=== PATIENT | male | born 1960 | race Caucasian/White ===

== ENCOUNTER 2023-09-30 20:58 | Inpatient (IN) | payer BC, SELFPAY ==
[2023-09-30] VITALS (7 sets, daily range): BP systolic 107–135; BP diastolic 57–102; BMI 34.5; BMI 34.1
[2023-09-30 13:01] LABS: Urine Albumin 2+ (Neg - Trace); Urine Bilirubin Negative (Negative); Urine Character Slightly Cloudy (Clear); Urine Color Yellow; Urine Glucose Negative (Negative); Urine Ketone Negative (Negative); Urine Leukocyte 1+ (Negative); Urine Nitrite Negative (Negative); Urine Occult Blood 4+ (Negative); Urine Urobilinogen Negative (Neg - 1+)
[2023-09-30 13:21] LABS: ALT (SGPT) 77 U/L (0-50); AST (SGOT) 71 U/L (17-59); Albumin 3.5 g/dl (3.5-5.0); Alkaline Phosphatase 73 U/L (38-126); Blood Urea Nitrogen 19 mg/dl (9-20); Calcium 8.7 mg/dl (8.4-10.2); Carbon Dioxide 19 mmol/L (22-30); Chloride 109 mmol/L (98-107); Glucose 112 mg/dl (70-99); Lipase 437 U/L (23-300); Potassium 3.5 mmol/L (3.5-5.1); Sodium 133 mmol/L (135-145); Total Bilirubin 1.1 mg/dl (0.2-1.3); Total Protein 5.4 g/dl (6.3-8.2); eGFR 39.39
[2023-09-30 13:24] LABS: % Basophils 0.5 % (0-2); % Immature Granulocytes 6.6 % (0-0.5); % Lymphocytes 3.4 % (20.5-51.1); % Monocytes 5.8 % (1.7-9.3); % Neutrophils 83.7 % (42.2-75.2); Absolute Basophils 0.1 10^3/uL (0-0.2); Absolute Immature Granulocytes 1.7 10^3/uL (0-0.05); Absolute Lymphocytes 0.9 10^3/uL (1.2-3.4); Absolute Monocytes 1.5 10^3/uL (0.1-0.6); Absolute Neutrophils 22.1 10^3/uL (1.4-6.5); Hematocrit 41.2 % (39.0-52.0); Hemoglobin 14.8 g/dL (13.0-18.0); Mean Corp Hgb Conc. 35.9 g/dL (33.0-37.0); Mean Corpuscular Hgb 31.4 pg (27.0-31.0); Mean Corpuscular Volume 87.5 fL (80.0-94.0); Mean Platelet Volume 10.5 fL (7.4-10.4); Nucleated Red Blood Cells % 0 % (-); Platelet Count 184 10^3/uL (130-400); Red Blood Cell Count 4.71 10^6/uL (4.70-6.10); Red Cell Dist. Width 13.9 % (11.5-14.5); White Blood Cell Count 26.4 10^3/uL (4.8-10.8)
[2023-09-30 13:51] LABS: Urine Amorphous Seen; Urine Mucus Moderate; Urine Squamous Cell 16-20 /LPF (Few)
[2023-09-30 13:53] LABS: Urine White Cell 30-40 /HPF (0-5)
[2023-09-30 13:54] LABS: Urine Bacteria Few (Negative)
--- NOTE | 2023-09-30 16:20 | ED.GENMED ---
History of Present Illness
<Fox Berry PA-C - Last Filed: 09/30/23 19:34>
General
Chief Complaint: Abdominal Pain
Source: patient
Exam Limitations: none
Time Seen by Provider: 09/30/23 16:06
Travel History
Have you had any contact with someone who has COVID-19?: No
Do you have any symptoms of coronavirus? Fever > 100 degrees, chills, cough, shortness of breath, sore throat, loss of taste or smell, muscle aches, or headache?: No
History of Present Illness
History of Present Illness:
63-year-old male with history of hypertension presents with several days worth of lower abdominal pain chills and fever. Saw treatment family doctor yesterday and thought to have either diverticulitis or urinary tract. He was started on Augmentin.
He has had 2 doses of this. He notes persistent rigors and lower abdominal pain. The pain is is moderate made worse with coughing. Does not radiate to the back. He notes a headache with coughing. Denies any vomiting. He has an urgency to
urinate and incontinence at times. No other complaints at this time
Past History
<Fox Berry PA-C - Last Filed: 09/30/23 19:34>
Past History
ED Past Medical History: HTN
Social History
Personal:
Phy Exam
<Fox Berry PA-C - Last Filed: 09/30/23 19:34>
Physical Exam
Physical Exam:
General: Ill-appearing male no acute respiratory distress with rigors HEENT: Normocephalic atraumatic mucosa dry neck is supple
Heart: tachycardic but regular
Lungs: Clear no wheeze or Rales
Abdomen soft tender to the lower abdomen bilaterally and slightly to the right mid abdomen. Negative Sherwood sign normal bowel sounds nondistended
Extremities: No cyanosis
Skin: Warm no rash
Course
<Fox Berry PA-C - Last Filed: 09/30/23 19:34>
Orders/Labs/Results
Orders:
Orders
09/30/23 12:47
Complete Blood Count/With Diff Urgent
Comprehensive Metabolic Panel Urgent
Lipase Urgent
Urinalysis Reflex To Culture Urgent
Date Specimen was Collected: 09/30/23
Time Specimen was Collected: 12:44
Urine Microscopic Reflex Cult Urgent
Urine Culture Urgent
PAULA Source: U
Specimen Description:
Date Specimen was Collected: 09/30/23
Time Specimen was Collected: 12:44
09/30/23 16:19
CT Abd/pelvis W Iv Cont Urgent
Comment:
Reason For Exam: lower abdominal pain, fever
0.9% Sodium Chloride 1000 ml [Nss] 1,000 ml IV BOLUS
Acetaminophen [Tylenol] 1,000 mg PO NOW STA
09/30/23 16:57
Lactic Acid Q4H
Comment: CANCEL 2nd LACTIC ACID IF 1st LACTIC ACID IS LESS THAN 2
Blood Culture Q30M
PAULA Source: Blood/Venous
Specimen Description:
09/30/23 18:22
Blood Culture Q30M
PAULA Source: Blood/Venous
Specimen Description:
09/30/23 19:22
Cefepime HCl [Maxipime] 2,000 mg IV NOW STA
09/30/23 19:23
0.9% Sodium Chloride 1000 ml [Nss] 1,000 ml IV BOLUS
Abnormal Lab Results
09/30/23
12:47
WBC 26.4 H 10^3/uL
(4.8-10.8)
MCH 31.4 H pg
(27.0-31.0)
MPV 10.5 H fL
(7.4-10.4)
Abs Immat Gran (auto) 1.7 H 10^3/uL
(0-0.05)
Absolute Neuts (auto) 22.1 H 10^3/uL
(1.4-6.5)
Absolute Lymphs (auto) 0.9 L 10^3/uL
(1.2-3.4)
Absolute Monos (auto) 1.5 H 10^3/uL
(0.1-0.6)
Immature Gran % 6.6 H %
(0-0.5)
Neutrophils % 83.7 H %
(42.2-75.2)
Lymphocytes % 3.4 L %
(20.5-51.1)
Sodium 133 L mmol/L
(135-145)
Chloride 109 H mmol/L
(98-107)
Carbon Dioxide 19 L mmol/L
(22-30)
Creatinine 1.9 H mg/dL
(0.7-1.3)
Glucose 112 H mg/dl
(70-99)
AST 71 H U/L
(17-59)
ALT 77 H U/L
(0-50)
Total Protein 5.4 L g/dl
(6.3-8.2)
Lipase 437 H U/L
(23-300)
Ur Occult Blood Reflex 4+ A
(Negative)
Leukocyte Esterase Rfl 1+ A
(Negative)
Urine RBC 11-15 A /HPF
(0-2)
Urine WBC (Reflex) 30-40 A /HPF
(0-5)
Urine Bacteria (Reflex) Few A
(Negative)
Urine Albumin (Reflex) 2+ A
(Neg - Trace)
09/30/23 12:47
09/30/23 12:47
Vital Signs
Initial and Last Documented VS:
Initial Vital Signs
Temp Pulse Resp BP Pulse Ox
100.8 F H 109 18 112/72 95
09/30/23 12:42 09/30/23 12:42 09/30/23 12:42 09/30/23 12:42 09/30/23 12:42
Last Documented Vital Signs
Temp Pulse Resp BP Pulse Ox
100.5 F H 93 20 118/57 94
09/30/23 17:38 09/30/23 19:45 09/30/23 19:45 09/30/23 19:40 09/30/23 18:00
<Sammy Sanon, DO - Last Filed: 09/30/23 19:51>
Orders/Labs/Results
Orders:
Orders
09/30/23 12:47
Complete Blood Count/With Diff Urgent
Comprehensive Metabolic Panel Urgent
Lipase Urgent
Urinalysis Reflex To Culture Urgent
Date Specimen was Collected: 09/30/23
Time Specimen was Collected: 12:44
Urine Microscopic Reflex Cult Urgent
Urine Culture Urgent
PAULA Source: U
Specimen Description:
Date Specimen was Collected: 09/30/23
Time Specimen was Collected: 12:44
09/30/23 16:19
CT Abd/pelvis W Iv Cont Urgent
Comment:
Reason For Exam: lower abdominal pain, fever
0.9% Sodium Chloride 1000 ml [Nss] 1,000 ml IV BOLUS
Acetaminophen [Tylenol] 1,000 mg PO NOW STA
09/30/23 16:57
Lactic Acid Q4H
Comment: CANCEL 2nd LACTIC ACID IF 1st LACTIC ACID IS LESS THAN 2
Blood Culture Q30M
PAULA Source: Blood/Venous
Specimen Description:
09/30/23 18:22
Blood Culture Q30M
PAULA Source: Blood/Venous
Specimen Description:
09/30/23 19:22
Cefepime HCl [Maxipime] 2,000 mg IV NOW STA
09/30/23 19:23
0.9% Sodium Chloride 1000 ml [Nss] 1,000 ml IV BOLUS
Abnormal Lab Results
09/30/23
12:47
WBC 26.4 H 10^3/uL
(4.8-10.8)
MCH 31.4 H pg
(27.0-31.0)
MPV 10.5 H fL
(7.4-10.4)
Abs Immat Gran (auto) 1.7 H 10^3/uL
(0-0.05)
Absolute Neuts (auto) 22.1 H 10^3/uL
(1.4-6.5)
Absolute Lymphs (auto) 0.9 L 10^3/uL
(1.2-3.4)
Absolute Monos (auto) 1.5 H 10^3/uL
(0.1-0.6)
Immature Gran % 6.6 H %
(0-0.5)
Neutrophils % 83.7 H %
(42.2-75.2)
Lymphocytes % 3.4 L %
(20.5-51.1)
Sodium 133 L mmol/L
(135-145)
Chloride 109 H mmol/L
(98-107)
Carbon Dioxide 19 L mmol/L
(22-30)
Creatinine 1.9 H mg/dL
(0.7-1.3)
Glucose 112 H mg/dl
(70-99)
AST 71 H U/L
(17-59)
ALT 77 H U/L
(0-50)
Total Protein 5.4 L g/dl
(6.3-8.2)
Lipase 437 H U/L
(23-300)
Ur Occult Blood Reflex 4+ A
(Negative)
Leukocyte Esterase Rfl 1+ A
(Negative)
Urine RBC 11-15 A /HPF
(0-2)
Urine WBC (Reflex) 30-40 A /HPF
(0-5)
Urine Bacteria (Reflex) Few A
(Negative)
Urine Albumin (Reflex) 2+ A
(Neg - Trace)
09/30/23 12:47
09/30/23 12:47
Vital Signs
Initial and Last Documented VS:
Initial Vital Signs
Temp Pulse Resp BP Pulse Ox
100.8 F H 109 18 112/72 95
09/30/23 12:42 09/30/23 12:42 09/30/23 12:42 09/30/23 12:42 09/30/23 12:42
Last Documented Vital Signs
Temp Pulse Resp BP Pulse Ox
100.5 F H 93 20 118/57 94
09/30/23 17:38 09/30/23 19:45 09/30/23 19:45 09/30/23 19:40 09/30/23 18:00
<Fox Berry PA-C - Last Filed: 09/30/23 19:34>
MDM/Problems Addressed
Differential Diagnosis Includes:
Fever lower abdominal pain rigors. Possible sepsis. Consider UTI versus diverticulitis versus prostatitis. Patient slightly tender to right upper quadrant. Also consider cholecystitis however tenderness in the lower abdomen not consistent with
this. White blood cell count is 26,000. He is tachycardic and febrile. Fluids ordered Tylenol ordered urinalysis shows many white blood cells many squamous cells and bacteria. Will check CT given tenderness. Patient has had 2 doses of Augmentin
and was tested for flu and COVID yesterday in the office both which were negative.
<Fox Berry PA-C - Last Filed: 09/30/23 19:34>
*Critical Care Note
Total Time (30-74mins, 75-104mins- exclusive of procedures): Not Applicable
<Fox Berry PA-C - Last Filed: 09/30/23 19:34>
Update Note
Update Note:
Urinalysis with signs of infection. White blood cell count 26,000. CT demonstrates left-sided pyelonephritis. We gave fluids and started cefepime. Will admit to hospitalist
ED Attending Note
<Fox Berry PA-C - Last Filed: 09/30/23 19:34>
-
Portions of this chart may have been created with voice recognition software.� Occasional wrong word or��sound alike� substitutions may have occurred due to the inherent limitations of voice recognition software.
<Sammy Sanon DO - Last Filed: 09/30/23 19:51>
ED Attending Note
I performed the substantive portion of visit, reviewed & personally made and approve the management plan that is documented in note by myself or NEO.: Yes
ED Attending Note:
I have reviewed and agree with history and treatment plan by James Berry. Lab findings and CT scan consistent with pyelonephritis. Admit
Discharge Plan
Departure
Patient Disposition: Admit
Date of Disposition: 09/30/23
Time of Disposition: 19:33
Admit to: Telemetry
Presentation/result/management discussed w/ accepting MD/DO: Hospitalist
Discharge Problem:
Acute pyelonephritis, Sepsis
Prescriptions:
No Action
meloxicam 7.5 mg Tablet
7.5 mg PO DAILY
famotidine [Pepcid] 20 mg Tablet
20 mg PO DAILY PRN (Reason: heartburn)
lisinopril 10 mg Tablet
10 mg PO DAILY
ondansetron HCl 8 mg Tablet
8 mg PO Q8H PRN (Reason: nausea/vomiting)
amoxicillin-pot clavulanate [Augmentin] 875-125 mg Tablet
1 tab PO Q12H
Referrals:
Franky Calvo DO [Family Provider] -
Interventions
Interventions:
*Risk Screen - Suicide Last Done: 09/30/23 16:36
*General Assessment Last Done: 09/30/23 16:36
*Neglect/Abuse Screening Last Done: 09/30/23 16:36
ED- Fall Risk Assessment Last Done: 09/30/23 16:36
*ED COVID-19 Vaccine History Last Done: 09/30/23 16:36
TM-Mdrrsz-Izcsddvmgj Assessment Last Done: 09/30/23 16:36
[2023-09-30] MEDS: TYLENOL 1000 MG PO (16:57)
[2023-09-30] MEDS: NSS 1000 IV ×2 (16:57→19:45)
[2023-09-30] MEDS: MAXIPIME 2000 MG IV (19:45)
--- NOTE | 2023-09-30 19:56 | HPS.HSE ---
Family Physician
-
Family Physician: Franky Calvo
Chief Complaint
-
lower abdominal pain, fever
History of Present Illness
Mr. Kermit Juarez is a 63 yo man with hx HTN, GERD presents to the ER with lower abdominal pain, fever and chills. He saw PCP yesterday and was started on Augmentin.
Patient describes fever and severe chills at home. He has had lower abdominal pain, no back pain. + urinary incontinence. + nausea/vomiting/diarrhea.
No chest pain or shortness of breath. + headache.
Medical History
Past Medical History
Past Medical History: Reports HTN
Past Surgical History: Reports None
Social History
Tobacco: Other (smoker, hasn't in 3 weeks)
Alcohol: Occasional
Personal:
Family History
Family History: Not pertinent
Allergies / Home Medications
Allergies reflects when Allergies were last updated in [facility].
Home Medications with original date entered in [facility]
Allergy/Medication List:
Allergies
Allergy/AdvReac Type Severity Reaction Status Date / Time
No Known Allergies Allergy Verified 09/30/23 12:41
Home Medications
famotidine 20 mg tablet (Pepcid) 20 mg PO DAILY PRN heartburn 07/24/23
lisinopril 10 mg tablet 10 mg PO DAILY 07/24/23
meloxicam 7.5 mg tablet 7.5 mg PO DAILY 07/24/23
amoxicillin 875 mg-potassium clavulanate 125 mg tablet 1 tab PO Q12H 09/30/23
ondansetron HCl 8 mg tablet 8 mg PO Q8H PRN nausea/vomiting 09/30/23
Review of Systems
-
History Source: Patient
A 12 point ROS was completed and negative except as noted: Yes
Physical Exam
Vital Signs
Vital Signs
Temp Pulse Resp BP Pulse Ox
100.5 F H 93 20 118/57 94
09/30/23 17:38 09/30/23 19:45 09/30/23 19:45 09/30/23 19:40 09/30/23 18:00
Physical Exam
General: No Apparent Distress, Conversant and Obese
HEENT: PERRLA
Respiratory: Clear; No Wheezes
Cardiac: S1/S2
GI: Other (tenderness lower abdomen, no rebound or guaring)
Musculoskeletal: No Edema
Skin: Warm and Dry; No Rash
Neuro: AO x 3
Psych: Calm
Laboratory Results
-
09/30/23 12:47
09/30/23 12:47
Laboratory Results
Lactic Acid Cancelled 09/30/23 20:30
Total Bilirubin 1.1 mg/dl (0.2-1.3) 09/30/23 12:47
AST 71 U/L (17-59) H 09/30/23 12:47
ALT 77 U/L (0-50) H 09/30/23 12:47
Alkaline Phosphatase 73 U/L (38-126) 09/30/23 12:47
Lipase 437 U/L (23-300) H 09/30/23 12:47
Data Reviewed
-
Diagnostic Radiology: Report Reviewed by me
Lab Data: Labs Reviewed by me
Impression/Plan
-
Mr. Kermit Juarez is a 63 yo man with hx HTN, GERD presents to the ER with lower abdominal pain, fever and chills. He saw PCP yesterday and was started on Augmentin.
Triage VS: T 100.8, P 109, RR 18, BP 112/72, SpO2 95%
LABS: WBC 26.4, Hg 14.8, PLT 184, Na 133, K+ 3.5, Cl 109, CO2 19, Cr 1.9, Glucose 112, lactate 2.0, AST 71, ALT 77
UA with 30-[address] A/P:
IMPRESSION: Findings suggesting left-sided pyelonephritis and lack of excretion from the left kidney. No evidence of obstruction.
Bilateral too small to characterize hypodense renal lesions likely benign cysts.
Mild left renal atrophy.
Hepatic fatty infiltration.
Mild diverticulosis.
Mild bladder wall thickening likely at least partially due to limited distention. Cystitis and bladder outlet obstruction not excluded.
Mild prostate hypertrophy.
MAR 1L IVF x 2, Cefepime 2G
Pyelonephritis
Severe sepsis 2/2 Pyelonephritis with GIRISH
-s/p IV Cefepime in ER
-admit to tele
-continue IV Cefepime 2g Q 12
-F/U cultures
-IVF
Acute Kidney Injury
-in setting of severe sepsis
-IVF as above
-F/U PVR
-CT without evidence of renal obstruction
-hold MARKETING MGR lisinopril and meloxicam
Elevated Liver Enzymes
-in setting of sepsis, liver unremarkable on CT
-monitor
Elevated Lipase
-like in setting of sepsis; pancreas unremarkable on CT imaging
Essential HTN
-hold MARKETING MGR lisinopril
DVT PPx hep subQ
FULL CODE
[2023-09-30] MEDS: TYLENOL 650 MG PO (22:48)
[2023-09-30] MEDS: LR 1000 IV (22:49)
[2023-09-30] MEDS: PEPCID 20 MG PO (23:08)
[2023-10-01] MEDS: VISBIOME 2 CAP PO (01:38)
--- NOTE | 2023-10-01 02:21 | PTCARENOTE ---
Pt received from ER [facility] able to make his needs known, pt very anxious & irritated at times when trying to explain things.Pt provided with emotional & psychological support. Plan of care was explained to pt well. Upon arrival to floor pt stated he
has had multiple loose stools all day long,[employer] TAIL[employer] authorization manager made aware of it,Cdiff sent on pt.Pt call sherman in reach.
[2023-10-01 03:00] VITALS: BP 112/80
[2023-10-01] MEDS: TYLENOL 650 MG PO ×5 (03:17→20:44)
[2023-10-01 06:00] VITALS: BMI 34.1
[2023-10-01] MEDS: LR 1000 IV ×3 (06:28→21:59)
[2023-10-01 07:32] LABS: % Basophils 0.5 % (0-2); % Eosinophils 0.1 % (0-6); % Lymphocytes 4.8 % (20.5-51.1); % Monocytes 8.5 % (1.7-9.3); % Neutrophils 85.1 % (42.2-75.2); Absolute Basophils 0.1 10^3/uL (0-0.2); Absolute Immature Granulocytes 0.2 10^3/uL (0-0.05); Absolute Lymphocytes 0.7 10^3/uL (1.2-3.4); Absolute Monocytes 1.3 10^3/uL (0.1-0.6); Absolute Neutrophils 12.8 10^3/uL (1.4-6.5); Hematocrit 34.5 % (39.0-52.0); Hemoglobin 12.1 g/dL (13.0-18.0); Mean Corp Hgb Conc. 35.1 g/dL (33.0-37.0); Mean Corpuscular Hgb 30.3 pg (27.0-31.0); Mean Corpuscular Volume 86.3 fL (80.0-94.0); Mean Platelet Volume 10.4 fL (7.4-10.4); Nucleated Red Blood Cells % 0 % (-); Platelet Count 153 10^3/uL (130-400); Red Cell Dist. Width 14.1 % (11.5-14.5)
[2023-10-01 07:35] VITALS: BP 127/74
[2023-10-01 07:55] LABS: ALT (SGPT) 62 U/L (0-50); AST (SGOT) 52 U/L (17-59); Albumin 2.8 g/dl (3.5-5.0); Alkaline Phosphatase 84 U/L (38-126); Blood Urea Nitrogen 25 mg/dl (9-20); Calcium 8.1 mg/dl (8.4-10.2); Carbon Dioxide 20 mmol/L (22-30); Chloride 102 mmol/L (98-107); Estimated Creatinine Clearance 43 ml/min; Glucose 100 mg/dl (70-99); Magnesium 2.2 mg/dl (1.6-2.3); Potassium 3.8 mmol/L (3.5-5.1); Sodium 129 mmol/L (135-145); Total Bilirubin 0.9 mg/dl (0.2-1.3); eGFR 31.32
[2023-10-01] MEDS: HEPARIN 5000 UNITS SC ×2 (08:23→20:39)
[2023-10-01] MEDS: MAXIPIME 2000 MG IV (08:23)
[2023-10-01] MEDS: STERILE WATER FOR INJECTION 10 ML IV ×2 (08:24→17:02)
[2023-10-01] MEDS: VISBIOME 1 CAP PO (08:24)
[2023-10-01 11:43] VITALS: BP 111/57
--- NOTE | 2023-10-01 12:46 | W.PN.HOSP.TC ---
Today's Communication/Plan
-
cw abx
see detailed plan above
Assessment / Plan
Assessment / Plan
Acute left pyelonephritis with bacteremia.
Severe sepsis 2/2 Pyelonephritis with GIRISH
-Gram-negative bacilli in the blood cultures noted
-continue IV Cefepime 2g Q 12
-F/U cultures
-IVF
-Consult ID.
-Consult urology-patient is having prostatism symptoms for the last 6 months and he has evidence of mild bladder wall thickening concerning for either cystitis or bladder outlet obstruction. Suspect this pyelonephritis is ascending and evaluate for
BPH. Check bladder scans for residuals.
Elevated creatinine-acute Kidney Injury versus chronic kidney disease.
Obtain old information
-Left kidney without contrast excretion from may be sec to pyelonephritis .
-CT without evidence of renal obstruction
-hold GYROSCOPE REPAIRER lisinopril and meloxicam
- Consult Renal
Elevated Liver Enzymes
-in setting of sepsis, liver unremarkable on CT
-monitor
Elevated Lipase
-like in setting of sepsis; pancreas unremarkable on CT imaging
Essential HTN
-hold GYROSCOPE REPAIRER lisinopril
DVT PPx hep subQ
FULL CODE
Total time spent on today's encounter was 52 minutes which included time spent in counseling the patient regarding diagnosis and treatment plan as listed above, goals of care, and symptom management. Case was discussed with nursing staff,
specialists . All labs and imaging personally reviewed by me. Remainder the time spent in detailed review of previous records, lab data, imaging, and other medical provider documentation.
Anticipated Discharge: > 48 hours
Subjective/Interval History
-
Date of Service: October 01, 2023
Still with some abdominal pain which goes across the right to the left abdomen. No back pain.
Nausea and vomiting has improved.
Still feeling cold and sweaty.
Patient was told he may have abnormal kidney function which is getting worked up by PCP. He also noticed in the last 6 months his stream of urine has decreased and he has to force to pee. Apparently was told there is no prostate enlargement. No
nocturia currently.
Objective Data
-
Labs:
Laboratory Results
10/01/23
07:15
WBC 15.0 H
Hgb 12.1 L
Hct 34.5 L
Plt Count 153
Sodium 129 L
Potassium 3.8
Chloride 102
Carbon Dioxide 20 L
BUN 25 H
Creatinine 2.3 H
Glucose 100 H
Calcium 8.1 L
Total Bilirubin 0.9
AST 52
ALT 62 H
Alkaline Phosphatase 84
Vital Signs:
Vital Signs
Temp Pulse Resp BP Pulse Ox
98.3 F 92 20 111/57 95
10/01/23 11:43 10/01/23 11:43 10/01/23 11:43 10/01/23 11:43 10/01/23 11:43
I&O
09/30/23 10/01/23 10/02/23
06:59 06:59 06:59
Intake Total 240 / 240
Output Total 600 / 600
Balance -360 / -360
Review of Systems
-
Constitutional: Reports Fever and Chills
EENT: Denies Sore Throat
Respiratory: Denies Cough or Trouble Breathing
Cardiac: Denies Chest Pain
Genitourinary: Reports Dysuria (Prior to coming into the hospital)
Neuro: Denies Dizzy
Physical Exam
-
General: No Apparent Distress
HEENT: Moist Mucous Membranes
Respiratory: Clear to Auscultation
Cardiac: Regular Rhythm and S1/S2
GI: Soft, Nontender, Nondistended and Normal Bowel Sounds
Genito-urinary: No Costovertebral Tender
Neuro: AO x 3
Psych: Calm; Negative Confused
Data Reviewed
-
Labs: Labs Reviewed by
--- NOTE | 2023-10-01 13:29 | CON.MD ---
Consultation - Medical
-
Assessment:
GIRISH on CKD 2/3A(bl Cr 1.2-1.4 since 2016)
GERD
HTN
smoker
Anal fistula
DLD
Morbid obesity
OA of R knee
Plan:
GIRIHS
- likely some ATN in the setting of sepsis
- would trend BMPs until Cr peak
- continue to encourage adequate hydration
- no urgent indication for HD
- avoid further nephrotoxic agents (hold NSAIDs and lisinopril)
- continue treatment with cefepime but would decrease dose to 1gq12h
- some L renal atrophy noted and concern for bladder outlet obstruction on imaging --> no acute management while inpatient. will need follow up in outpatient setting with nephrology
HTN:
- normotensive off of lisinopril
- CTM
--- NOTE | 2023-10-01 15:10 | PTCARENOTE ---
Patient had brief run of tachycardia on telemtry monitor. patient sleeping, easily aroused, no complaints. Dr Marcus aware and reviewed rhythm. no new orders at this time. plan of care ongoing.
[2023-10-01 15:48] VITALS: BP 111/63
--- NOTE | 2023-10-01 16:28 | CON.ID ---
Consultation
-
Date/Time Consultation Requested: 10/01/2023 08:26
Date/Time Consultation Performed: 10/01/2023 1612
Requesting Provider: Dr. Marcus
Performing Provider: Dr. John
Reason for Consultation: Bacteremia; pyelonephritis
Chief Complaint / Past History
History of Present Illness
Kermit Juarez is a 63-year-old man with a significant past medical history of HTN being evaluated at the request of Dr. Marcus in regards to bacteremia and pyelonephritis. History is obtained from chart review, along with patient interview.
The patient presents to [facility] ER on 09/30/2023 after several days of lower abdominal discomfort associated with chills and fever. He was seen by his PCP on 09/29 and was thought to have either diverticulitis or urinary tract infection and
he was started on a course of Augmentin. Despite 2 doses of antibiotics he developed rigors and no improvement in the abdominal discomfort and thus he came to the emergency room for further evaluation. Here he was found to have a leukocytosis and
abdominal imaging revealed the suggestion of left-sided pyelonephritis. Blood cultures have been found to be positive for Klebsiella pneumoniae, and Infectious Diseases is asked to comment upon further antimicrobial therapy
Past History
Past Medical History: HTN
Past Surgical History: None
Allergy History:
No Known Allergies Allergy (Verified 09/30/23 12:41)
Medications Reviewed: Yes
Current Antibiotics:
Cefepime
Social History
Tobacco: Smoker
Alcohol: Occasional
Drug: None
Personal:
Living: With Family
Employment: Employed
Family History
Family History: Not Pertinent
Review of Systems
Vital Signs
Temp Pulse Resp BP Pulse Ox
98.8 F 91 22 111/63 95
10/01/23 15:48 10/01/23 15:48 10/01/23 15:48 10/01/23 15:48 10/01/23 15:48
Physical Exam
Physical Exam
Constitutional: Acutely Ill, Obese and Other (Currently rigors.)
Head: Normocephalic
Eyes: Pupils Equal, Pupils Round, No Conjunctival Hemorrhage and Sclera Anicteric
Oral: No Thrush and No Ulcers
Lymph Nodes: Negative Lymphadenopathy
Cardiovascular: Regular Rate and S1/S2; Negative S3/S4
Pulmonary: Clear and Non Labored; Negative Wheezes, Rales or Rhonchi
Gastrointestinal: Soft, Distended, Normal Bowel Sounds, No Rebound and No Guarding
Genito-Urinary: Negative CVA Tenderness
Extremities: Negative Edema, Cyanosis or Erythema
Neurological: Awake and Alert
Psychological: Calm
Lab / Diagnostic Study Results
10/01/23 07:15
10/01/23 07:15
Abs Immat Gran (auto) 0.2 10^3/uL (0-0.05) H 10/01/23 07:15
Absolute Neuts (auto) 12.8 10^3/uL (1.4-6.5) H 10/01/23 07:15
Absolute Lymphs (auto) 0.7 10^3/uL (1.2-3.4) L 10/01/23 07:15
Absolute Monos (auto) 1.3 10^3/uL (0.1-0.6) H 10/01/23 07:15
Absolute Basos (auto) 0.1 10^3/uL (0-0.2) 10/01/23 07:15
Immature Gran % 1.0 % (0-0.5) H 10/01/23 07:15
Neutrophils % 85.1 % (42.2-75.2) H 10/01/23 07:15
Lymphocytes % 4.8 % (20.5-51.1) L 10/01/23 07:15
Monocytes % 8.5 % (1.7-9.3) 10/01/23 07:15
Eosinophils % 0.1 % (0-6) 10/01/23 07:15
Basophils % 0.5 % (0-2) 10/01/23 07:15
Lactic Acid Cancelled 09/30/23 20:30
Ur Squamous Epith Cells 16-20 /LPF (Few) 09/30/23 12:47
Microbiology Results
Micro:
09/30/23 18:22 Blood Culture - Preliminary
Blood/Venous Positive culture in progress
Gram Stain - Final
09/30/23 16:57 Blood Culture - Preliminary
Blood/Venous Klebsiella pneumoniae
Gram Stain - Preliminary
09/30/23 12:47 Urine Culture - Final
Urine No Significant Growth
10/01/23 00:35 C. difficile GDH Antigen & Toxins - Final
Feces/Stool Negative for toxigenic C.difficile
Assessment / Plan
Klebsiella bacteremia
Fevers
Leukocytosis
Left-sided pyelonephritis
Hyponatremia
GIRISH
Transaminitis
Hx HTN
Recommendations:
Repeat blood cultures now to assess clearance. Suspect blood cultures may be positive, as patient is currently rigorus.
Broaden antibiotics to meropenem 500 mg IV every 6 hours pending further culture data.
Monitor white count and temperature curve.
Await further culture data to guide antimicrobial selection and de-escalation.
[2023-10-01] MEDS: MERREM 500 MG IV (17:01)
[2023-10-01] MEDS: ULTRAM 50 MG PO ×2 (17:02→23:19)
[2023-10-01] MEDS: PEPCID 20 MG PO (17:06)
[2023-10-01 19:00] VITALS: BP 99/62
[2023-10-01 22:48] VITALS: BP 112/57
[2023-10-02] MEDS: STERILE WATER FOR INJECTION 10 ML IV ×4 (01:03→23:17)
[2023-10-02] MEDS: MERREM 500 MG IV ×4 (01:03→23:17)
[2023-10-02] MEDS: TYLENOL 650 MG PO ×5 (01:03→19:29)
[2023-10-02 03:00] VITALS: BP 118/66
[2023-10-02] MEDS: LR 1000 IV ×2 (05:12→15:36)
[2023-10-02] MEDS: ULTRAM 50 MG PO ×4 (05:19→23:24)
[2023-10-02 06:00] VITALS: BMI 34.5
[2023-10-02 07:26] LABS: Hematocrit 32.8 % (39.0-52.0); Hemoglobin 11.5 g/dL (13.0-18.0); Mean Corp Hgb Conc. 35.1 g/dL (33.0-37.0); Mean Corpuscular Volume 88.4 fL (80.0-94.0); Mean Platelet Volume 10.6 fL (7.4-10.4); Platelet Count 154 10^3/uL (130-400); Red Blood Cell Count 3.71 10^6/uL (4.70-6.10); Red Cell Dist. Width 14.4 % (11.5-14.5); White Blood Cell Count 9.9 10^3/uL (4.8-10.8)
[2023-10-02 08:05] VITALS: BP 120/70
[2023-10-02 08:10] LABS: ALT (SGPT) 58 U/L (0-50); AST (SGOT) 60 U/L (17-59); Albumin 2.6 g/dl (3.5-5.0); Alkaline Phosphatase 76 U/L (38-126); Blood Urea Nitrogen 23 mg/dl (9-20); Calcium 7.8 mg/dl (8.4-10.2); Carbon Dioxide 22 mmol/L (22-30); Chloride 103 mmol/L (98-107); Estimated Creatinine Clearance 53 ml/min; Glucose 107 mg/dl (70-99); Lipase 101 U/L (23-300); Potassium 3.4 mmol/L (3.5-5.1); Sodium 129 mmol/L (135-145); Total Bilirubin 0.7 mg/dl (0.2-1.3); Total Protein 4.8 g/dl (6.3-8.2); eGFR 39.39
[2023-10-02] MEDS: VISBIOME 1 CAP PO (09:27)
[2023-10-02] MEDS: HEPARIN 5000 UNITS SC ×2 (09:27→19:29)
--- NOTE | 2023-10-02 10:47 | W.PN.HOSP.TC ---
Today's Communication/Plan
-
Continue with IV antibiotics
Follow culture data
Duplex ultrasound of the renal arteries
Assessment / Plan
Assessment / Plan
Acute left pyelonephritis with Klebsiella pneumoniae bacteremia.
Severe sepsis 2/2 Pyelonephritis with GIRISH
-continue IV Cefepime 2g Q 12; sensitivities pending
-F/U cultures
-appt ID input
DW urology 10/01 -patient is having prostatism symptoms for the last 6 months and he has evidence of mild bladder wall thickening concerning for either cystitis or bladder outlet obstruction. Suspect this pyelonephritis is ascending and evaluate for
BPH. No acute urological interventions in house needed -follow as OP.
Patient urinating better. Bladder scan shows no retention.
acute Kidney Injury versus chronic kidney disease. Baseline Cr 1.2-1.3 per nephro
-Left kidney without contrast excretion from may be sec to pyelonephritis . There are some mild left renal atrophy. Obtain Doppler ultrasound of the renal arteries.
-CT without evidence of renal obstruction
-hold BUSINESS PROJECT ANALYST lisinopril and meloxicam
- Consult Renal
Elevated Liver Enzymes
-in setting of sepsis, liver unremarkable on CT
-monitor
Elevated Lipase
-like in setting of sepsis; pancreas unremarkable on CT imaging
Essential HTN
BP under goal without meds
-hold BUSINESS PROJECT ANALYST lisinopril
DVT PPx hep subQ
FULL CODE
Anticipated Discharge: 24 - 48 hours
Subjective/Interval History
-
Date of Service: October 02, 2023
No further fever. Improved abdominal pain.
But he feels exhausted and tired and fatigued.
Objective Data
-
Labs:
Laboratory Results
10/02/23
07:10
WBC 9.9
Hgb 11.5 L
Hct 32.8 L
Plt Count 154
Sodium 129 L
Potassium 3.4 L
Chloride 103
Carbon Dioxide 22
BUN 23 H
Creatinine 1.9 H
Glucose 107 H
Calcium 7.8 L
Total Bilirubin 0.7
AST 60 H
ALT 58 H
Alkaline Phosphatase 76
Vital Signs:
Vital Signs
Temp Pulse Resp BP Pulse Ox
97.5 F 82 18 120/70 97
10/02/23 08:05 10/02/23 08:05 10/02/23 08:05 10/02/23 08:05 10/02/23 09:51
I&O
10/01/23 10/02/23 10/03/23
06:59 06:59 06:59
Intake Total 240 / 240 2460 / 2460
Output Total 600 / 600 400 / 400
Balance -360 / -360 2059
Review of Systems
-
Constitutional: Reports Fatigue; Denies Fever or Chills
Respiratory: Denies Trouble Breathing
Cardiac: Denies Chest Pain or Palpitations
Abdomen/GI: Denies Abdominal Pain, Nausea or Vomiting
Neuro: Denies Dizzy
Physical Exam
-
General: No Apparent Distress
HEENT: Moist Mucous Membranes
Respiratory: Clear to Auscultation
Cardiac: Regular Rhythm and S1/S2
GI: Soft, Nontender, Nondistended and Normal Bowel Sounds
Genito-urinary: No Costovertebral Tender
Neuro: AO x 3
Psych: Calm; Negative Confused or Agitated
Data Reviewed
-
Labs: Labs Reviewed by me
--- NOTE | 2023-10-02 11:08 | CM ---
CM following re: d/c planning
Chart reviewed
CM met with the patient at bedside; IA completed
Pt states he and his spouse reside in a [place] with [address]
CONCRETE JOURNEYMAN patient reports independence at baseline
Pt has no past hx of VN/SNF/DME
Pt has prescription coverage and rx's are filled at [facility] on [address]
Pt PCP-Dr. Franky Calvo
No needs are anticipated once stable
CM will continue to monitor patient progress and assist with any needs that may be applicable
PLAN; d/c home no needs anticipated
[2023-10-02 11:15] VITALS: BP 105/55
--- NOTE | 2023-10-02 12:58 | W.PN.NEPH.PH ---
Today's Communication / Plan
-
follow bmp
holding laly
bp stable
IVFs
Assessment/Plan
-
Impression:
GIRISH on CKD 2/3A(bl Cr 1.2-1.4 since 2015)
GERD
HTN
smoker
Anal fistula
DLD
Morbid obesity
OA of R knee
Plan:
GIRISH
- likely some ATN in the setting of sepsis
-creatinine down to 1.9
-watching hyponatremia
- would trend BMPs until Cr peak
- continue to encourage adequate hydration
- avoid further nephrotoxic agents (hold NSAIDs and lisinopril)
- continue treatment with cefepime
- some L renal atrophy noted and concern for bladder outlet obstruction on imaging --> no acute management while inpatient. will need follow up in outpatient setting with nephrology
-renal duplex ordred
-maintain IVFs
HTN:
- normotensive off of lisinopril
- CTM
-
-
Date of Service: October 02, 2023
CC / HPI / ROS
-
Chief Complaint:
GIRISH
History of Present Illness:
hemodynamically stable
creatinine down to 1.9
on cefipime for bacteremia/Pyelonephritis
Review of Systems:
non oliguric but incontinent
no current fevers
Labs
-
Labs:
WBC 9.9 10^3/uL (4.8-10.8) 10/02/23 07:10
RBC 3.71 10^6/uL (4.70-6.10) L 10/02/23 07:10
Hgb 11.5 g/dL (13.0-18.0) L 10/02/23 07:10
Hct 32.8 % (39.0-52.0) L 10/02/23 07:10
Plt Count 154 10^3/uL (130-400) 10/02/23 07:10
Sodium 129 mmol/L (135-145) L 10/02/23 07:10
Potassium 3.4 mmol/L (3.5-5.1) L 10/02/23 07:10
Chloride 103 mmol/L (98-107) 10/02/23 07:10
Carbon Dioxide 22 mmol/L (22-30) 10/02/23 07:10
BUN 23 mg/dl (9-20) H 10/02/23 07:10
Creatinine 1.9 mg/dL (0.7-1.3) H 10/02/23 07:10
eGFR 39.39 10/02/23 07:10
Glucose 107 mg/dl (70-99) H 10/02/23 07:10
Calcium 7.8 mg/dl (8.4-10.2) L 10/02/23 07:10
Albumin 2.6 g/dl (3.5-5.0) L 10/02/23 07:10
Physical Exam
-
Vital Signs:
Vital Signs
Temp Pulse Resp BP Pulse Ox
99 F 65 20 105/55 95
10/02/23 11:15 10/02/23 11:15 10/02/23 11:15 10/02/23 11:15 10/02/23 11:15
Cardiovascular:: Regular rate and rhythm
Respiratory:: Bilateral: Coarse
Lung Excursion:: Normal
Abdomen:: Nontender and Soft
Bowel Sounds:: Normal
Extremity Edema:: None: Bilateral:
Gabriel Catheter: No
--- NOTE | 2023-10-02 13:00 | W.PN.ID1 ---
Date of Service
Date of Service: October 02, 2023
Today's Communication
Continue abx.
Assessment / Plan
Klebsiella pneumoniae bacteremia
Fevers
Leukocytosis
Left-sided pyelonephritis
Hyponatremia
GIRISH
Transaminitis
Hx HTN
Recommendations:
Continue meropenem for today.
Follow repeat blood cultures to assess clearance. Await current positive blood cultures to guide further antimicrobial selection and possible de-escalation.
Monitor white count and temperature curve.
����������������������������������������������������������
Chief Complaint
-: UTI and Bacteremia
Subjective / Review of Systems
Review of Systems: No Fever and No Chills
Vital Signs / Physical Exam
Vital Signs
Vital Signs
Temp Pulse Resp BP Pulse Ox
99 F 65 20 105/55 95
10/02/23 11:15 10/02/23 11:15 10/02/23 11:15 10/02/23 11:15 10/02/23 11:15
Physical Exam
Constitutional: No Acute Distress, Comfortable, Non-toxic and Obese
Eyes: No Conjunctival Hemorrhage and Sclera Anicteric
Cardiovascular: S1/S2; Negative S3/S4
Pulmonary: Non Labored
Gastrointestinal: Soft, Non Distended and Normal Bowel Sounds
Genito-Urinary: Negative CVA Tenderness
Neurological: Awake, Alert and Oriented
Psychological: Calm
Objective Data
Lab Data
Lab Results
10/02/23 07:10
10/02/23 07:10
Estimated Creat Clear 53 ml/min 10/02/23 07:10
Lactic Acid Cancelled 09/30/23 20:30
Total Bilirubin 0.7 mg/dl (0.2-1.3) 10/02/23 07:10
AST 60 U/L (17-59) H 10/02/23 07:10
ALT 58 U/L (0-50) H 10/02/23 07:10
Alkaline Phosphatase 76 U/L (38-126) 10/02/23 07:10
Most recent labs reviewed.
Micro Results:
09/30/23 16:57 Blood Culture - Preliminary
Blood/Venous Klebsiella pneumoniae
Gram Stain - Final
09/30/23 18:22 Blood Culture - Preliminary
Blood/Venous Positive culture in progress
Gram Stain - Final
10/02/23 07:10 Blood Culture - Pending
Blood/Venous
10/01/23 17:07 Blood Culture - Pending
Blood/Venous
10/01/23 16:33 Blood Culture - Pending
Blood/Venous
09/30/23 12:47 Urine Culture - Final
Urine No Significant Growth
10/01/23 00:35 C. difficile GDH Antigen & Toxins - Final
Feces/Stool Negative for toxigenic C.difficile
[2023-10-02 15:00] VITALS: BP 127/77
--- NOTE | 2023-10-02 16:47 | PTCARENOTE ---
Addendum entered by Daily Ordaz RN 10/02/23 16:51:
EKG, Trop and ECHO ordered at this time.
Original Note:
pt had a short runs of Vtach. pt in bed with at bedside. pt c/o chills with fever of 100.4 no other complains at this time. MD made aware. no new orders at this time. will continue plan of care.
[2023-10-02] MEDS: PEPCID 20 MG PO (17:18)
[2023-10-02] MEDS: KCL 270 MEQ IV (17:18)
[2023-10-02 19:24] VITALS: BP 117/74
[2023-10-02 19:34] LABS: Troponin I 0.039 ng/ml
[2023-10-02 23:31] VITALS: BP 126/90
[2023-10-03] MEDS: TYLENOL 650 MG PO ×6 (00:08→21:13)
[2023-10-03] MEDS: LR 1000 IV ×2 (00:55→10:48)
[2023-10-03 03:00] VITALS: BP 114/51
[2023-10-03] MEDS: ULTRAM 50 MG PO (05:30)
[2023-10-03] MEDS: MERREM 500 MG IV ×3 (05:30→17:09)
[2023-10-03] MEDS: STERILE WATER FOR INJECTION 10 ML IV ×3 (05:30→17:09)
[2023-10-03 06:39] LABS: Troponin I 0.029 ng/ml
[2023-10-03 06:52] LABS: Blood Urea Nitrogen 20 mg/dl (9-20); Carbon Dioxide 24 mmol/L (22-30); Chloride 99 mmol/L (98-107); Estimated Creatinine Clearance 67 ml/min; Glucose 116 mg/dl (70-99); Potassium 3.3 mmol/L (3.5-5.1); Sodium 131 mmol/L (135-145); eGFR 52.31
[2023-10-03 07:02] VITALS: BP 119/73
[2023-10-03] MEDS: HEPARIN 5000 UNITS SC ×2 (08:22→19:37)
[2023-10-03] MEDS: VISBIOME 1 CAP PO (08:22)
[2023-10-03 11:27] VITALS: BP 119/73
--- NOTE | 2023-10-03 11:41 | W.PN.HOSP.TC ---
Today's Communication/Plan
-
Replete potassium.
Start low-dose. Onel.
Continue with antibiotics per ID.
Assessment / Plan
Assessment / Plan
Acute left pyelonephritis with Klebsiella pneumoniae bacteremia.
Severe sepsis 2/2 Pyelonephritis with GIRISH
-continue IV antibiotics per ID.
-Culture sensitivities noted
-Afebrile and normalized white count. Clinically as well feeling improved.
DW urology 10/01 -patient is having prostatism symptoms for the last 6 months and he has evidence of mild bladder wall thickening concerning for either cystitis or bladder outlet obstruction. Suspect this pyelonephritis is ascending and evaluate for
BPH. No acute urological interventions in house needed -follow as OP.
Patient urinating better. Bladder scan shows no retention.
acute Kidney Injury versus chronic kidney disease. Baseline Cr 1.2-1.3 per nephro
-Left kidney without contrast excretion from may be sec to pyelonephritis . There are some mild left renal atrophy. Obtain Doppler ultrasound of the renal arteries-report pending.
-CT without evidence of renal obstruction
-hold CORE DIPPER lisinopril and meloxicam
-Improved creatinine to 1.5.
-Renal following.
Bigeminy with PACs and PVCs-Patient with normal EF on echocardiogram and no significant valve abnormalities. No prior history of CAD. Magnesium is normal. Continue to replete potassium. With the frequency of bigeminy and premature beats could
start on a low-dose beta-onel. Not clear if this is sepsis related. Patient advised to follow with PCP to get an outpatient Holter monitor when he is more clinically stable.
Elevated Liver Enzymes
-in setting of sepsis, liver unremarkable on CT
-monitor
Elevated Lipase
-like in setting of sepsis; pancreas unremarkable on CT imaging
Essential HTN
BP under goal without meds
-hold CORE DIPPER lisinopril
DVT PPx hep subQ
FULL CODE
Anticipated Discharge: Within 24 hours
Subjective/Interval History
-
Date of Service: October 03, 2023
Feeling much improved.
No fever or chills.
Denies any abdominal pain. Does not like tramadol-would like to DC it.
Tolerating diet.
Objective Data
-
Labs:
Laboratory Results
10/03/23
05:44
Sodium 131 L
Potassium 3.3 L
Chloride 99
Carbon Dioxide 24
BUN 20
Creatinine 1.5 H
Glucose 116 H
Calcium 8.0 L
Vital Signs:
Vital Signs
Temp Pulse Resp BP Pulse Ox
98.6 F 83 20 119/73 94
10/03/23 11:27 10/03/23 11:27 10/03/23 11:27 10/03/23 11:27 10/03/23 11:27
I&O
10/02/23 10/03/23 10/04/23
06:59 06:59 06:59
Intake Total 2460 / 2460 1680 / 1680
Output Total 400 / 400 1650 / 1650
Balance 2059
Review of Systems
-
Constitutional: Denies Fever (Today) or Chills
EENT: Denies Sore Throat
Respiratory: Denies Cough or Trouble Breathing
Cardiac: Denies Chest Pain or Palpitations
Abdomen/GI: Denies Abdominal Pain, Nausea or Vomiting
Neuro: Denies Dizzy
Physical Exam
-
General: No Apparent Distress
HEENT: Moist Mucous Membranes
Respiratory: Clear to Auscultation
Cardiac: Regular Rhythm and S1/S2
GI: Soft
Neuro: AO x 3
Psych: Calm
Data Reviewed
-
Medical Tests (Nuc Med, Echo etc): Report Reviewed by me (Echocardiogram)
Labs: Labs Reviewed by me
[2023-10-03] MEDS: KCL ELIXIR 40 MEQ PO (12:21)
[2023-10-03] MEDS: KCL 270 MEQ IV (12:21)
[2023-10-03] MEDS: TOPROL XL 12.5 MG PO (12:22)
[2023-10-03 15:02] VITALS: BP 114/61
--- NOTE | 2023-10-03 15:30 | W.PN.NEPH.PH ---
Today's Communication / Plan
-
Follow BMP
Holding MARJAN inhibitor and meloxicam
Replete potassium
Assessment/Plan
-
Impression:
GIRISH on CKD 2/3A(bl Cr 1.2-1.4 since 2015)
GERD
HTN
smoker
Anal fistula
DLD
Morbid obesity
OA of R knee
Left Pyelonephritis
Plan:
GIRISH
- likely some ATN in the setting of Klebsiella pneumonia sepsis from pyelonephritis
-creatinine down to baseline 1.5, nonoliguric
-watching hyponatremia improve to 131
- avoid further nephrotoxic agents (hold NSAIDs and lisinopril)
- continue treatment with meropenem
- some L renal atrophy noted and concern for bladder outlet obstruction on imaging --> no acute management while inpatient. will need follow up in outpatient setting with nephrology
-renal duplex ordered, results pending
-d/c further IVfs
HTN:
- normotensive off of lisinopril, remains on metoprolol
-
-
Date of Service: October 03, 2023
CC / HPI / ROS
-
Chief Complaint:
GIRISH
History of Present Illness:
hemodynamically stable
creatinine down to 1.5
on meropenem for bacteremia/Pyelonephritis
Review of Systems:
non oliguric but incontinent
no current fevers
Labs
-
Labs:
WBC 9.9 10^3/uL (4.8-10.8) 10/02/23 07:10
RBC 3.71 10^6/uL (4.70-6.10) L 10/02/23 07:10
Hgb 11.5 g/dL (13.0-18.0) L 10/02/23 07:10
Hct 32.8 % (39.0-52.0) L 10/02/23 07:10
Plt Count 154 10^3/uL (130-400) 10/02/23 07:10
Sodium 131 mmol/L (135-145) L 10/03/23 05:44
Potassium 3.3 mmol/L (3.5-5.1) L 10/03/23 05:44
Chloride 99 mmol/L (98-107) 10/03/23 05:44
Carbon Dioxide 24 mmol/L (22-30) 10/03/23 05:44
BUN 20 mg/dl (9-20) 10/03/23 05:44
Creatinine 1.5 mg/dL (0.7-1.3) H 10/03/23 05:44
eGFR 52.31 10/03/23 05:44
Glucose 116 mg/dl (70-99) H 10/03/23 05:44
Calcium 8.0 mg/dl (8.4-10.2) L 10/03/23 05:44
Albumin 2.6 g/dl (3.5-5.0) L 10/02/23 07:10
Physical Exam
-
Vital Signs:
Vital Signs
Temp Pulse Resp BP Pulse Ox
98.6 F 83 20 119/73 94
10/03/23 11:27 10/03/23 12:22 10/03/23 11:27 10/03/23 12:22 10/03/23 11:27
Cardiovascular:: Regular rate and rhythm
Respiratory:: Bilateral: Coarse
Lung Excursion:: Normal
Abdomen:: Nontender
Bowel Sounds:: Normal
Extremity Edema:: None: Bilateral:
Gabriel Catheter: No
[2023-10-03] MEDS: PEPCID 20 MG PO (17:41)
[2023-10-03 19:39] VITALS: BP 132/73
[2023-10-03] MEDS: LR IV (19:49)
[2023-10-03 23:35] VITALS: BP 142/81
[2023-10-04] MEDS: MERREM 500 MG IV ×2 (00:14→05:29)
[2023-10-04] MEDS: STERILE WATER FOR INJECTION 10 ML IV ×2 (00:15→05:29)
[2023-10-04] MEDS: TYLENOL 650 MG PO ×3 (01:13→09:45)
[2023-10-04 03:22] VITALS: BP 123/78
--- NOTE | 2023-10-04 05:43 | PTCARENOTE ---
Pt with noticeable BARBOUR when ambulating from bathroom with audible expiratory wheeze, pox 96% RA- pt denies SOB, refusing nebulizer treatment at this time. Stating ' this has been ongoing since i became sick'
[2023-10-04 06:43] LABS: Blood Urea Nitrogen 18 mg/dl (9-20); Calcium 8.1 mg/dl (8.4-10.2); Carbon Dioxide 29 mmol/L (22-30); Chloride 103 mmol/L (98-107); Estimated Creatinine Clearance 67 ml/min; Glucose 109 mg/dl (70-99); Potassium 3.6 mmol/L (3.5-5.1); Sodium 134 mmol/L (135-145); eGFR 52.31
[2023-10-04 07:50] VITALS: BP 102/47
[2023-10-04] MEDS: VISBIOME 1 CAP PO (09:10)
[2023-10-04] MEDS: TOPROL XL 12.5 MG PO (09:10)
[2023-10-04] MEDS: HEPARIN 5000 UNITS SC (09:10)
--- NOTE | 2023-10-04 10:38 | W.PN.UPDATE ---
Update Note
Progress Note Update
Chart reviewed
sensi back
bacteremia cleared
QTc low 400s
switch to levofloxacin 750 mg po qday x10 more days - 14 day total course; for pyelnephritis/possible prostatitis
follow up with PCP
[place] texted Dr Marcus my recommendation
[2023-10-04 11:05] VITALS: BP 118/71
--- NOTE | 2023-10-04 11:22 | W.PN.HOSP.TC ---
Today's Communication/Plan
-
DC
Assessment / Plan
Assessment / Plan
Acute left pyelonephritis with Klebsiella pneumoniae bacteremia.
Severe sepsis 2/2 Pyelonephritis with GIRISH
--Culture sensitivities noted.
-Afebrile, white count normalized. Improved clinically.
-Reached clinical stability from sepsis standpoint-discussed with ID who recommend switching to oral Levaquin for 10 days. QTc was okay at 46. Crcl noted
DW urology 10/01 -patient is having prostatism symptoms for the last 6 months and he has evidence of mild bladder wall thickening concerning for either cystitis or bladder outlet obstruction. Suspect this pyelonephritis is ascending and evaluate for
BPH. No acute urological interventions in house needed -follow as OP.
Patient urinating better. Bladder scan shows no retention.
acute Kidney Injury versus chronic kidney disease. Baseline Cr 1.2-1.3 per nephro
-Left kidney without contrast excretion from may be sec to pyelonephritis . There are some mild left renal atrophy. Obtain Doppler ultrasound of the renal arteries-report pending.
-CT without evidence of renal obstruction
-hold BODY SHOP TECHNICIAN lisinopril and meloxicam
-Improved creatinine to 1.5.
-Renal following.
Bigeminy with PACs and PVCs-Patient with normal EF on echocardiogram and no significant valve abnormalities. No prior history of CAD. Magnesium is normal. Continue to replete potassium. With the frequency of bigeminy and premature beats could
start on a low-dose beta-onel. Not clear if this is sepsis related. Patient advised to follow with PCP to get an outpatient Holter monitor when he is more clinically stable.
Elevated Liver Enzymes
-in setting of sepsis, liver unremarkable on CT
-monitor
Elevated Lipase
-like in setting of sepsis; pancreas unremarkable on CT imaging
Essential HTN
BP under goal without meds
-hold BODY SHOP TECHNICIAN lisinopril
DVT PPx hep subQ
FULL CODE
Discussed with ID
Discussed with at bedside
More than 30 minutes spent in discharge including
Final examination of the patient
Summarizing hospital stay
Instructions for continuing care to all relevant caregivers
Preparation of discharge records, prescriptions, and referral forms
Total time spent (in minutes): 32 minutes
Anticipated Discharge: Today
Subjective/Interval History
-
Date of Service: October 04, 2023
Feeling much better. Appetite is come back. Walking in the hallways.
No fever or chills.
No nausea vomiting.
No shortness of breath chest pain or palpitations.
No abdominal pain further. Urinating fine without issues.
Objective Data
-
Labs:
Laboratory Results
10/04/23
05:29
Sodium 134 L
Potassium 3.6
Chloride 103
Carbon Dioxide 29
BUN 18
Creatinine 1.5 H
Glucose 109 H
Calcium 8.1 L
Vital Signs:
Vital Signs
Temp Pulse Resp BP Pulse Ox
98.3 F 80 18 118/71 94
10/04/23 11:05 10/04/23 11:05 10/04/23 11:05 10/04/23 11:05 10/04/23 11:05
I&O
10/03/23 10/04/23 10/05/23
06:59 06:59 06:59
Intake Total 1680 / 1680 3130 / 3130
Output Total 1650 / 1650 1850 / 1850
Balance 30 / 30 1280 / 1280
Review of Systems
-
Constitutional: Denies Fever
EENT: Denies Sore Throat
Respiratory: Denies Cough
Genitourinary: Denies Dysuria
Neuro: Denies Dizzy
Physical Exam
-
General: No Apparent Distress
HEENT: Moist Mucous Membranes
Respiratory: Clear to Auscultation
Cardiac: Regular Rhythm and S1/S2
GI: Soft, Nontender, Nondistended and Normal Bowel Sounds
Neuro: AO x 3
Psych: Calm
Data Reviewed
-
Labs: Labs Reviewed by me
--- NOTE | 2023-10-04 11:33 | W.DS.TRANS ---
DC Summary - Hr Systems Analyst
-
Discharge Instructions:
Discharge Diagnosis/Procedures Klebsiella pneumonia bacteremic UTI with left
pyelonephritis; acute on chronic kidney disease
Diet Regular
Activity As tolerated
Driving Restrictions As prior to admission
Blood Work CMP blood work in a week-arrange through PCP
Others Tests Arrange a cardiac Holter monitor through PCP
Stop these medications: Lisinopril meloxicam
Instructions:
Stand-Alone Forms:
Changes to Home Medications: Yes
Discharge Medications:
DC Medications w/original date entered in [employer]
famotidine 20 mg tablet (Pepcid) 20 mg PO DAILY PRN heartburn 07/24/23
acetaminophen 325 mg tablet 650 mg PO Q4HPRN PRN mild pain/SWARTZ/temp> 100.4F #1 tab 10/04/23
levofloxacin 750 mg tablet 750 mg PO DAILY #9 tabs 10/04/23
metoprolol succinate 25 mg tablet,extended release 24 hr 12.5 mg PO DAILY #30 tabs 10/04/23
Home Medication Changes
new medication Levaquin, metoprolol
Discontinued medication-lisinopril, meloxicam
Pending Results: No
--- NOTE | 2023-10-04 11:34 | W.DCSUMMARY ---
Discharge Summary
Discharge Data
Date of Admission: 09/30/23
Date of Discharge: 10/04/23
-
Pending Results: No
Hospital Course
Primary diagnosis:
Sepsis
Acute pyelonephritis
Klebsiella pneumoniae bacteremia
Acute kidney injury on chronic kidney disease 2/3A
Ventricular bigeminy
Secondary diagnosis:
Essential hypertension
Hospital course:
61-year-old gentleman present with abdominal pain, fever and discovered to have-
Acute left pyelonephritis with Klebsiella pneumoniae bacteremia.
Severe sepsis 2/2 Pyelonephritis with GIRISH
No evidence of obstructive uropathy. Resolved sepsis with antibiotics
Once reached clinical stability he was discharged on oral Levaquin which it is sensitive to for 10 days. QTc was okay at 46. Crcl 67.
patient is having prostatism symptoms for the last 6 months and he has evidence of mild bladder wall thickening concerning for either cystitis or bladder outlet obstruction.� Suspect this pyelonephritis is ascending and evaluate for BPH. No acute
urological interventions in house needed -follow as OP with urology..
Patient urinating better.� Bladder scan shows no retention.
�acute Kidney Injury versus chronic kidney disease. Baseline Cr 1.2-1.3 per nephro. His creatinine peaked to 2.3 and improved to 1.5 prior to discharge.
-Left kidney without contrast excretion from may be sec to pyelonephritis .� There are some mild left renal atrophy.� Obtain Doppler ultrasound of the renal arteries-limited study because of body habitus , inability to hold breath, patient movement.
Visualized portion of the bilateral renal arteries with no significant stenosis identified. Resistant indices and bilateral kidneys are somewhat elevated may be indicative of intrinsic/parenchymal kidney disease
-CT without evidence of renal obstruction
-hold SILK SCREEN PROCESSOR lisinopril and meloxicam
-Improved creatinine to 1.5.
Bigeminy with PACs and PVCs-Patient with normal EF on echocardiogram and no significant valve abnormalities.� No prior history of CAD.� Magnesium is normal.� Hypokalemia repleted.� With the frequency of bigeminy and premature beats could startED on
a low-dose beta-onel.� Not clear if this is sepsis related.� Patient advised to follow with PCP to get an outpatient Holter monitor when he is more clinically stable.
Elevated Liver Enzymes
-in setting of sepsis, liver unremarkable on CT
-Repeat as outpatient
Elevated Lipase
-like in setting of sepsis; pancreas unremarkable on CT imaging
Essential HTN
BP under goal with BB
-hold SILK SCREEN PROCESSOR lisinopril
Consultants on board:
Nephrology-Dr. Wesley
Infectious disease-Dr. John
Discharge Plan
-
Patient Disposition: Home (Routine Discharge)
Discharge Diagnosis/Procedures: Klebsiella pneumonia bacteremic UTI with left pyelonephritis; acute on chronic kidney disease
Diet: Regular
Activity: As tolerated
Driving Restrictions: As prior to admission
Blood Work: CMP blood work in a week-arrange through PCP
Others Tests: Arrange a cardiac Holter monitor through PCP
Stop these medications:: Lisinopril meloxicam
Referrals:
Franky Calvo DO [Family Provider] - in less than 1 week
Luis Miguel Lewis MD [Active] - in two to four weeks
Cristino Miramontes MD [Active] - in one month
Prescriptions:
New
levofloxacin 750 mg Tablet
750 mg PO DAILY Qty: 9 0RF
metoprolol succinate 25 mg Tablet Extended Release 24 Hr
12.5 mg PO DAILY Qty: 30 0RF
acetaminophen 325 mg Tablet
650 mg PO Q4HPRN PRN (Reason: mild pain/SWARTZ/temp> 100.4F) Qty: 1 0RF
Continued
famotidine [Pepcid] 20 mg Tablet
20 mg PO DAILY PRN (Reason: heartburn)
Discontinued
meloxicam 7.5 mg Tablet
7.5 mg PO DAILY
lisinopril 10 mg Tablet
10 mg PO DAILY
ondansetron HCl 8 mg Tablet
8 mg PO Q8H PRN (Reason: nausea/vomiting)
amoxicillin-pot clavulanate [Augmentin] 875-125 mg Tablet
1 tab PO Q12H
Discharge Orders:
Discharge Patient (As Directed); Ordered 10/04/23
Ordered By: Elder Marcus
[2023-10-04] MEDS: LEVAQUIN 750 MG PO (12:11)
--- NOTE | 2023-10-04 13:39 | CM ---
pt for dc with no needs identified.
== END 2023-10-04 12:25 | disposition home or self-care (01) | DRG 871 ==
LOC: 4 EAST ACU 20:58
PROVIDERS: Emergency Medicine; Nurse Practitioner Gerontology; Physician Assistant; Specialist; ADMITTING PHYSICIAN Student in an Organized Health Care Education/Training Program; ATTENDING PHYSICIAN Internal Medicine; CONSULT PHYSICIAN Internal Medicine Infectious Disease; EMERGENCY PHYSICIAN Emergency Medicine; FAMILY PHYSICIAN Family Medicine; OTHER PHYSICIAN Student in an Organized Health Care Education/Training Program
DX: A41.9 Sepsis, unspecified organism (principal); N17.0 Acute kidney failure with tubular necrosis; N10 Acute pyelonephritis; E87.1 Hypo-osmolality and hyponatremia; I12.9 Hypertensive chronic kidney disease with stage 1 through stage 4 chronic kidney disease, or unspecified chronic kidney disease; R65.20 Severe sepsis without septic shock; N18.2 Chronic kidney disease, stage 2 (mild); K21.9 Gastro-esophageal reflux disease without esophagitis; R32 Unspecified urinary incontinence; F17.200 Nicotine dependence, unspecified, uncomplicated; E66.01 Morbid (severe) obesity due to excess calories; Z68.34 Body mass index [BMI] 34.0-34.9, adult; M17.11 Unilateral primary osteoarthritis, right knee; E78.5 Hyperlipidemia, unspecified
CPT/HCPCS: 74177; 80048; 80053; 81003; 81015; 83605; 83690; 83735; 84484; 85025; 85027; 87040; 87086; 87149; 87186; 87205; 87324; 87449; 93005; 93306; 93975; 96361; 96374; 99285; Q9967